=== PATIENT | female | born 1955 | race Caucasian/White ===

== ENCOUNTER → 2016-04-07 | Outpatient (CLI) | payer BC ==
[~2016-04-07] MED LIST: DOK100TA PO; EVEN10003 PO; HCTZ50TA PO; LINA290C PO; MELO15TA2 PO; OMEP20TA39 PO; PREV10CA PO
--- NOTE | 2016-04-07 11:08 | RADRPT ---
EXAM DATE/TIME: 04/07/2016 10:27 [place] COMPARISON: No previous studies available for comparison. INDICATIONS : Dysphagia. Patient c/o coughing, choking, and has the feeling of things getting mitchel ck in her throat. FLUORO TIME: 1.1 minutes IMAGE COUNT: 1 CONTRAST: Dose as prescribed by speech pathologist. MEDICAL HISTORY : None. SURGICAL HISTORY : None. ENCOUNTER: Initial ACUITY: 4 - 6 months PAIN SCORE: 0/10 LOCATION: Esophagus. FINDINGS: A modified barium swallow was performed with speech pathology. Patient was given a variety of liquids to swallow. There is no aspiration. For a full detailed report, see report by the speech pathologist. CONCLUSION: For a full detailed report, see report by the speech pathologist. Feliz Kaiser MD FACR on April 07, 2016 at 11:05 Board Certified Radiologist. This report was verified electronically.
== END ==
LOC: HRAD 09:39
PROVIDERS: ATTEND Family Medicine
DX: R13.12 Dysphagia, oropharyngeal phase (principal)
CPT/HCPCS: 74230; 92611; G8996; G8997; G8998